=== PATIENT | female | born 1970 | race Caucasian/White ===

== ENCOUNTER 2019-05-23 16:38 | Emergency (ER) | payer MEDICARE ==
[~2019-05-23] VITALS: Ht 175.3 cm; Wt 145.7 kg
--- NOTE | 2019-05-23 17:03 | NUR ---
PT C/O PRODUCTIVE COUGH AND GENERAL NOT FEELING WELL X4 DAYS. FAMILY SMOKES IN HOUSE. PT HAS BEEN AROUND FAMILY THAT'S BEEN SICK. CONNECTED TO MONITORING. PROVIDER AT BEDSIDE. AWAITNG ORDERS AT THIS TIME.
[2019-05-23 17:29] LABS: RAPID INFLUENZA A Negative (Negative); RAPID INFLUENZA B Negative (Negative)
--- NOTE | 2019-05-23 17:40 | NUR ---
PROVIDER AT BEDSIDE TO UPDATE PT ON POC.
[2019-05-23 18:06] VITALS: BP 114/75
--- NOTE | 2019-05-23 18:07 | NUR ---
TASK RN: Patient/Caregiver given discharge instructions and they have confirmed that they understand the instructions. Patient ambulatory with steady gait.
== END 2019-05-23 18:25 | disposition home or self-care (01) ==
LOC: ED 18:20
DX: B34.9 Viral infection, unspecified (principal); I10 Essential (primary) hypertension; E11.9 Type 2 diabetes mellitus without complications
CPT/HCPCS: 71046; 87400; 93005; 99284

== ENCOUNTER 2020-06-14 10:08 | Emergency (ER) | payer MEDICARE ==
[~2020-06-14] VITALS: Ht 175.3 cm; Wt 144.0 kg
[2020-06-14 11:17] LABS: BASOPHILS % (AUTO) 1 % (0-1); EOSINOPHILS % (AUTO) 3 % (1-7); LYMPHOCYTES % (AUTO) 34 % (22-44); MEAN CORPUSCULAR HEMOGLOBIN 29.9 pg (27.0-34.8); MEAN CORPUSCULAR HGB CONC 34.4 g/dL (32.4-35.8); MEAN PLATELET VOLUME 7.6 fL (7.4-10.4); MONOCYTES % (AUTO) 4 % (2-9); NEUTROPHILS % (AUTO) 58 % (42-75); PLATELET COUNT 212 x10^3/uL (130-400); RED CELL DISTRIBUTION WIDTH 12.3 % (9.6-15.2)
[2020-06-14 11:21] LABS: MD NO
[2020-06-14 11:26] LABS: ALBUMIN 3.2 g/dL (3.4-5.0); ANION GAP 5 mmol/L (5-15); CALCIUM 8.8 mg/dL (8.5-10.1); CHLORIDE 103 mmol/L (98-107)
--- NOTE | 2020-06-14 11:28 | NUR ---
Pt ambulatory to bathroom for UA, steady gait.
[2020-06-14 11:31] LABS: ALANINE AMINOTRANSFERASE 41 U/L (12-78); ALKALINE PHOSPHATASE 129 U/L (45-117); BILIRUBIN,TOTAL 0.8 mg/dL (0.2-1.0); CREATININE 1.02 mg/dL (0.55-1.02); TOTAL PROTEIN 7.2 g/dL (6.4-8.2); TROPONIN I < 0.015 ng/mL (0.000-0.045)
--- NOTE | 2020-06-14 11:43 | NUR ---
TASK RN: PT AMBULATED BACK TO ROOM WITHOUT DIFFICULTY, VSS, RA SAT 98%. URINE SAMPLE COLLECTED AND SENT TO LAB.
[2020-06-14 11:48] LABS: MICROSCOPIC NOT IND
[2020-06-14] MEDS ORDERED: SODIUM CHLORIDE 0.9% 1,000ML IVBOLUS ONE ×2 (12:00→14:00)
--- NOTE | 2020-06-14 12:07 | NUR ---
IV FLUIDS INFUSING.
[2020-06-14] MEDS ORDERED: INSULIN SINGLE DOSE, ER ONE ×2 (12:13→12:20)
[2020-06-14] MEDS ORDERED: INSULIN REGULAR 100 UNITS/ML, 3ML VIAL SQ-INSULIN ONE (12:30)
--- NOTE | 2020-06-14 13:04 | NUR ---
Waiting for IV fluids to infuse before, FSBG repeated.
--- NOTE | 2020-06-14 13:52 | NUR ---
Pt states she uses O2 at night but hasn't seen a doctor for re-prescription in "years." States "my brother and so I've been using his oxygen now during the day." Pt has a hx of fibromyalgia and neuropathy. She is a chronic pain pt who takes 30mg of morphine daily and 60mg of morphine at night. Pt told this RN that she missed her morning insulin dose. Pt called this RN back to bedside to complain of left arm pain. Left arm noted to have increasing redness, pt laying on this arm. No open wounds noted. Bilateral finger swelling noted. Pt had received fluids and insulin only at this time. This RN requested MD Maria go back to bedside to reassess pt. MD Maria back to bedside as requested. This RN continually asking pt to rearrange herself in bed as she is slupped over on painful arm and not in an optimal position for good ventilation. Pt refusing r/t "this is the only position that's comfortable for my back." Pt offered chair to sit up in instead. Pt moved to chair, sitting up right, VSS, no O2 administration. Pt has remained on phone with mother for duration of time in ER. Pt showed this RN pictures of mother's catheter bag, asking for medical advice. This RN informed pt that if her mother is concered she should call her health care provider because this RN cannot give medical advice to someone who isn't her patient over the phone.
--- NOTE | 2020-06-14 14:48 | NUR ---
Pt sitting in chair, talking on phone. NADN. 94% on RA.
[2020-06-14 16:40] VITALS: BP 146/89
--- NOTE | 2020-06-14 16:43 | NUR ---
Pt's boyfriend at bedside for d/c. Boyfriend states "so can you tell me why she's having nose bleeds? And have you looked at her foot?" This RN assessed foot. Skin intact, flaking. Pt and boyfriend educated about emergency r/o with labs like d-dimer and follow up appt.
== END 2020-06-14 16:44 | disposition home or self-care (01) ==
LOC: ED 11:20
DX: R06.00 Dyspnea, unspecified (principal); E11.65 Type 2 diabetes mellitus with hyperglycemia; R07.89 Other chest pain; R00.0 Tachycardia, unspecified; I10 Essential (primary) hypertension
CPT/HCPCS: 36415; 71045; 80053; 81003; 82962; 83880; 84484; 85025; 85379; 93005; 96360; 96361; 99285; J1815; J7030